=== PATIENT | male | born 1995 | race Two or more races ===

== ENCOUNTER 2021-02-26 07:23 | Emergency (ER) | payer MEDICAID, OTHER ==
[~2021-02-26] VITALS: Ht 170.2 cm; Wt 113.4 kg
[2021-02-26 07:34] VITALS: BP 145/68
== END 2021-02-26 10:49 | disposition left against medical advice (07) ==
LOC: ER 07:23 → EDBD 07:23 → ER 10:49
DX: F32.9 Major depressive disorder, single episode, unspecified (principal); Z53.21 Procedure and treatment not carried out due to patient leaving prior to being seen by health care provider